=== PATIENT | female | born 1975 ===

== ENCOUNTER 2017-05-09 09:52 | Emergency (ER) | payer SELFPAY ==
[2017-05-09 10:09] VITALS: BP 114/57; PULSE 75; TEMP 97.7; O2SAT 100; BMI 36.3
[2017-05-09 10:20] VITALS: RESP 16
[2017-05-09] MEDS ORDERED: Sodium Chloride 0.9% 1,000 ML IV STA (10:38)
[2017-05-09] MEDS ORDERED: Iohexol 240 (50 ml) PO ONE (10:45)
--- NOTE | 2017-05-09 11:06 | ED PDOC ---
HPI: Abdomen Time Seen by Provider: 05/09/17 10:21 Chief Complaint (Nursing): Abdominal Pain Chief Complaint (Provider): abdominal pain History Per: Patient History/Exam Limitations: no limitations Onset/Duration Of Symptoms: Days (14), Persistent Outside of [place] travel?: No Current Symptoms Are (Timing): Still Present Severity: None Location Of Pain/Discomfort: RLQ, LLQ, Periumbilical, Suprapubic Associated Symptoms: Fever (subjective), Chills, Nausea, Diarrhea (3-4x daily), Loss Of Appetite. denies: Vomiting, Back Pain, Chest Pain, Constipation, Urinary Symptoms Exacerbating Factors: Movement, Food Alleviating Factors: Rest Last Bowel Movement: Today Abnormal Vaginal Bleeding: No Past Medical History Reviewed: Historical Data, Nursing Documentation, Vital Signs Vital Signs: Last Vital Signs Temp 97.7 F 05/09/17 10:16 Pulse 75 05/09/17 10:16 Resp 16 05/09/17 10:16 BP 114/57 L 05/09/17 10:16 Pulse Ox 100 05/09/17 11:06 - Medical History PMH: No Chronic Diseases - Family History Family History: States: No Known Family Hx - Home Medications Home Medications: Ambulatory Orders Medication Instructions Recorded Vit Calc,Iron,Folic 1 each PO DAILY 02/13/16 [ Vitamins] Docusate [Colace] 100 mg PO BID PRN #60 cap 02/16/16 Ferrous Sulfate [Feosol] 325 mg PO DAILY #30 tab 02/16/16 Ibuprofen [Motrin Tab] 600 mg PO Q6H PRN #0 tab 02/16/16 Oxycodone HCl/Acetaminophen 1 each PO Q4H PRN #20 tablet 02/16/16 [Percocet 5-325 mg Tablet] Ibuprofen [Motrin] 400 mg PO Q6 #30 tab 05/09/17 - Allergies Allergies/Adverse Reactions: Allergies Allergy/AdvReac Type Severity Reaction Status Date / Time No Known Allergies Allergy Verified 02/13/16 05:09 Review of Systems ROS Statement: Except As Marked, All Systems Reviewed And Found Negative Constitutional: Positive for: Fever, Chills Gastrointestinal: Positive for: Nausea, Abdominal Pain, Diarrhea. Negative for : Vomiting Physical Exam - Reviewed Nursing Documentation Reviewed: Yes Vital Signs Reviewed: Yes - Physical Exam Appears: Positive for: Non-toxic, No Acute Distress, Uncomfortable Head Exam: Positive for: ATRAUMATIC, NORMAL INSPECTION, NORMOCEPHALIC Skin: Positive for: Normal Color, Warm, DRY Cardiovascular/Chest: Positive for: Regular Rate, Rhythm Respiratory: Positive for: CNT, Normal Breath Sounds Gastrointestinal/Abdominal: Positive for: Bowel Sounds, Soft, Tenderness (LLQ/ RLQ pain. ), Guarding. Negative for: Distended Back: Positive for: Normal Inspection. Negative for: L CVA Tenderness, R CVA Tenderness Extremity: Positive for: Normal ROM Neurologic/Psych: Positive for: Alert, Oriented - Laboratory Results Result Diagrams: 05/09/17 11:00 05/09/17 11:00 - ECG O2 Sat by Pulse Oximetry: 100 - Progress ED Course And Treament: r/o colitis Orders Category Date Time Status ABD PELVIS PO & IV CONTRAST [CT] Stat CT 05/09/17 10:46 Ordered COMP METABOLIC PANEL Stat Chem 05/09/17 10:43 Ordered LIPASE Stat Chem 05/09/17 10:43 Ordered ED Urine (POC) Stat ED Care 05/09/17 10:43 Ordered CBC (WITH DIFFERENTIAL) Stat JENNIFER 05/09/17 10:43 Ordered Famotidine [Pepcid] Med 05/09/17 10:53 Discontinued 20 mg .ROUTE .STK-MED ONE Famotidine [Pepcid] Med 05/09/17 10:38 Discontinued 20 mg IVP STAT STA Iohexol [Omnipaque 240 (50 ML)] Med 05/09/17 10:45 Discontinued 50 ml PO ONCE ONE Ondansetron [Zofran Inj] Med 05/09/17 10:54 Discontinued 4 mg .ROUTE .STK-MED ONE Ondansetron [Zofran Inj] Med 05/09/17 10:38 Discontinued 4 mg IVP STAT STA Sodium Chloride 0.9% 1,000 ml Med 05/09/17 10:38 Active IV 1,000 mls/hr URINALYSIS Stat URINALYSIS 05/09/17 10:43 Ordered Medical Decision Making Medical Decision Making: ct scan: IMPRESSION: Ruptured/involuting 1.9 cm right ovarian follicular cyst with trace fluid in cul -de-sac. Mild hepatomegaly. Otherwise unremarkable. Pt advised to have obgyn f.u motrin for pain advised sh may still have pain over the next week or so, but if with excruciating pain to return to ER. pt demonstrates understanding. pt without pain at time of d/c Vital Signs - 24 hr 05/09/17 05/09/17 05/09/17 10:00 10:16 15:09 Temperature 97.7 F 97.7 F Pulse Rate 75 75 Respiratory 16 Rate Blood Pressure 114/57 L 114/57 L O2 Sat by Pulse 100 100 100 Oximetry Disposition - Clinical Impression Clinical Impression: Ruptured ovarian cyst - Patient ED Disposition Is Patient to be Admitted: No Counseled Patient/Family Regarding: Studies Performed, Diagnosis, Need For Followup, Rx Given - Disposition Referrals: [facility] [Outside] [facility] [Outside] [facility] [Outside] Disposition: Routine/Home Disposition Time: 15:09 Condition: STABLE Prescriptions: Ibuprofen [Motrin] 400 mg PO Q6 #30 tab Instructions: Ovarian Cyst (ED) Forms: [facility] (Welsh) Print Language: DIVEHI
[2017-05-09] MEDS ORDERED: Iohexol 240 (50 ml) ONE (11:07)
[2017-05-09 11:15] LABS: BASO # 0.1 K/uL (0.0-0.2); BASO % 1.1 % (0.0-2.0); EOS # 0.1 K/uL (0.0-0.7); EOS % 0.5 % (0.0-4.0); HEMATOCRIT 36.7 % (34.0-47.0); LYMPH # 1.6 K/uL (1.0-4.3); LYMPH % 14.9 % (20.0-40.0); MEAN CELL VOLUME 87.1 fl (81.0-99.0); MEAN CORPUSCULAR HEMOGLOBIN 28.8 pg (27.0-31.0); MEAN CORPUSCULAR HGB CONC 33.1 g/dL (33.0-37.0); MEAN PLATELET VOLUME 7.8 fl (7.2-11.7); MONO # 0.5 K/uL (0.0-0.8); MONO % 4.2 % (0.0-10.0); NEUT # 8.7 K/uL (1.8-7.0); NEUT % 79.3 % (50.0-75.0); RED CELL DISTRIBUTION WIDTH 13.5 % (11.5-14.5); WHITE BLOOD COUNT 10.9 K/uL (4.8-10.8)
[2017-05-09 11:19] LABS: RBC URINE 9 /hpf (0-3); URINE BACTERIA RARE (<OCC); URINE BILIRUBIN NEGATIVE (NEGATIVE); URINE BLOOD MODERATE (NEGATIVE); URINE COLOR YELLOW (YELLOW); URINE GLUCOSE (UA) NEG (Normal); URINE KETONE NEGATIVE (NEGATIVE); URINE LEUKOCYTE ESTERASE NEG Leu/uL (Negative); URINE PROTEIN 30 mg/dL (NEGATIVE); URINE UROBILINOGEN 0.2-1.0 mg/dL (0.2-1.0); WBC URINE 1 /hpf (0-5)
[2017-05-09 11:24] LABS: ALB/GLOB RATIO 1.2 (1.0-2.1); ALKALINE PHOSPHATASE 89 U/L (38-126); ALT/SGPT 39 U/L (9-52); AST/SGOT 25 U/L (14-36); BLOOD UREA NITROGEN 16 mg/dl (7-17); CALCIUM 9.1 mg/dL (8.4-10.2); CARBON DIOXIDE 24 mmol/L (22-30); CHLORIDE 105 mmol/L (98-107); GFR AFRICAN-AMERICAN > 60; GLUCOSE,RANDOM 110 mg/dL (65-105); LIPASE 54 U/L (23-300); POTASSIUM 3.8 MMOL/L (3.6-5.0); SODIUM 141 mmol/l (132-148); TOTAL PROTEIN 7.9 G/DL (6.3-8.2)
[2017-05-09] MEDS ORDERED: Sodium Chloride 0.9% 50 ML IV ONE (13:12)
[2017-05-09] MEDS ORDERED: Iohexol 300 100 ML IJ ONE (13:12)
--- NOTE | 2017-05-09 15:05 | CT ---
PROCEDURE: CT Abdomen and Pelvis with contrast HISTORY: left sided abd pain with diarrhea nasuea fever COMPARISON: None. TECHNIQUE: Contrast dose: 95 mL Omnipaque 300 Radiation dose: Total exam DLP = 1041.03 mGy-cm. This CT exam was performed using one or more of the following dose reduction techniques: Automated exposure control, adjustment of the mA and/or kV according to patient size, and/or use of iterative reconstruction technique. FINDINGS: LOWER THORAX: Unremarkable. LIVER: Mild hepatomegaly. The liver measures approximately 23 cm craniocaudal. Smooth contour. No mass. No biliary ductal dilatation. GALLBLADDER AND BILE DUCTS: Unremarkable. PANCREAS: Unremarkable. No gross lesion or ductal dilatation. SPLEEN: Unremarkable. ADRENALS: Unremarkable. No mass. KIDNEYS AND URETERS: Unremarkable. No hydronephrosis. No solid mass. VASCULATURE: Unremarkable. No aortic aneurysm. BOWEL: Unremarkable. No obstruction. No gross mural thickening. APPENDIX: Normal appendix. PERITONEUM: Trace fluid in cul-de-sac. LYMPH NODES: Unremarkable. No enlarged lymph nodes. BLADDER: Urinary bladder nondistended. Diffusely thickened wall likely due to lack of distension. Correlate for cystitis. REPRODUCTIVE: Unremarkable uterus. 1.9 cm irregularly shaped peripherally enhancing right ovarian lesion consistent with involuting or ruptured follicular cyst. BONES: No acute fracture. OTHER FINDINGS: None. IMPRESSION: Ruptured/involuting 1.9 cm right ovarian follicular cyst with trace fluid in cul-de-sac. Mild hepatomegaly. Otherwise unremarkable.
== END 2017-05-09 15:48 | disposition home or self-care (01) ==
LOC: H.ER 09:52
DX: N83.01 Follicular cyst of right ovary (principal)
CPT/HCPCS: 74177; 80053; 81003; 81025; 83690; 85025; 96374; 96375; 99283; J2405; J7040; Q9966; Q9967